=== PATIENT | female | born 1990 | race African-American/Black ===

== ENCOUNTER 2016-09-13 10:00 | Observation (INO) | payer MEDICAID ==
[~2016-09-13] VITALS: Ht 157.5 cm; Wt 81.6 kg
[2016-09-13] MEDS ORDERED: PREN-88 PO (11:20)
== END 2016-09-13 11:50 | disposition home or self-care (01) ==
LOC: L&D 10:00
PROVIDERS: ADMIT Obstetrics & Gynecology; ATTEND Obstetrics & Gynecology
DX: O26.893 Other specified pregnancy related conditions, third trimester (principal); R09.81 Nasal congestion; O98.813 Other maternal infectious and parasitic diseases complicating pregnancy, third trimester; B37.9 Candidiasis, unspecified; Z3A.36 36 weeks gestation of pregnancy
CPT/HCPCS: G0378; J7120

== ENCOUNTER 2016-09-25 07:06 | Inpatient (IN) | payer MEDICAID ==
[~2016-09-25] VITALS: Ht 157.5 cm; Wt 83.5 kg
[~2016-09-25 07:06] MED LIST: PREN-88 PO
[2016-09-25] MEDS ORDERED: LACTATED RINGERS 1,000 ML IV SCH ×2 (08:00→08:47)
[2016-09-25 08:03] LABS: GLUCOSE URINE NEGATIVE (NEGATIVE); KETONES URINE TRACE (NEGATIVE); LEUKOCYTE ESTERASE URINE 3+ (NEGATIVE); NITRITE URINE NEGATIVE (NEGATIVE); OCCULT BLOOD URINE NEGATIVE (NEGATIVE); PH URINE 6.5 (4.5-8.0); PROTEIN URINE NEGATIVE (NEGATIVE); SPECIFIC GRAVITY URINE 1.011 (1.005-1.030); UROBILINOGEN URINE 0.2 E.U./dL (0.2-1.0)
[2016-09-25 08:05] LABS: CLARITY URINE SL HAZY (CLEAR); COLOR URINE YELLOW (YELLOW)
[2016-09-25] MEDS ORDERED: TERBUTALINE SULFATE 1MG/ML VIAL SUBCUT PRN (08:15)
[2016-09-25] MEDS ORDERED: DEXT 5%/LR + PITOCIN 20UNITS/L 1,000 ML IV SCH ×2 (08:47→13:10)
[2016-09-25] MEDS ORDERED: CARBOPROST TROMETHAMINE 250 MCG/ML AMPUL IM PRN (09:00)
[2016-09-25] MEDS ORDERED: METHYLERGONOVINE MALEATE 0.2 MG/ML IM PRN (09:00)
[2016-09-25 09:53] LABS: BASOPHILS % 0.3 % (0.0-2.0); EOSINOPHILS % 0.4 % (0.0-5.0); LYMPHOCYTES % 19.7 % (20.0-50.0); MEAN CORPUSCULAR HEMOGLOBIN 27.6 pg (28.0-32.0); MEAN CORPUSCULAR VOLUME 86.5 fL (81.0-99.0); MEAN PLATELET VOLUME 8.2 fl (7.4-10.4); NEUTROPHILS % 72.6 % (40.0-76.0); PLATELET 269 x1000/uL (130-400); RED BLOOD CELL COUNT 2.89 mill/uL (4.2-5.4); RED CELL DISTRIBUTION WIDTH 15.1 % (11.6-14.6)
[2016-09-25 10:00] LABS: PARTIAL THROMBOPLASTIN TIME 27.3 sec (24.0-34.0)
[2016-09-25 10:35] LABS: HEPATITIS B SURFACE ANTIGEN NEGATIVE; RUBELLA IGG 183.7 IU/mL (4.99-10)
[2016-09-25] MEDS ORDERED: MORPHINE SULFATE/PF 1MG/ML 10ML AMP ONE (11:47)
[2016-09-25] MEDS ORDERED: OXYTOCIN 10 UNITS/ML 1ML ONE ×2 (11:47→13:47)
[2016-09-25] MEDS ORDERED: CEFAZOLIN 2000MG PREMIX 50 ML IV ONE (11:47)
[2016-09-25] MEDS ORDERED: SODIUM CHLORIDE 0.9% 10ML VIAL ONE (11:47)
[2016-09-25] MEDS ORDERED: FENTANYL CITRATE/PF 50MCG/ML 2ML VIAL ONE (11:47)
[2016-09-25] MEDS ORDERED: EPHEDRINE SULFATE 50MG/ML VIAL ONE (11:47)
[2016-09-25] MEDS ORDERED: ONDANSETRON HCL 4MG/2ML VIAL ONE (11:49)
[2016-09-25] MEDS ORDERED: DIPHENHYDRAMINE 50MG/ML VIAL ONE (11:49)
[2016-09-25] MEDS ORDERED: GLYCOPYRROLATE 0.2 MG/ML 2ML VIAL ONE (13:09)
[2016-09-25] MEDS ORDERED: BISACODYL 10MG SUPP PR PRN (13:15)
[2016-09-25] MEDS ORDERED: RHO(D) IMMUNE GLOBULIN 300 MCG/SYR IM PRN (13:15)
[2016-09-25] MEDS ORDERED: IBUPROFEN 400MG TABLET PO PRN (13:15)
[2016-09-25] MEDS ORDERED: HYDROMORPHONE HCL/PF 2MG/ML CPJ IM PRN (13:15)
[2016-09-25] MEDS ORDERED: PHENYLEPHRINE HCL 10 MG/ML 1ML (IV VIAL) IV ONE (13:47)
[2016-09-25] MEDS ORDERED: NALOXONE HCL 0.4 MG/ML 1ML VIAL IV PRN (14:45)
[2016-09-25] MEDS ORDERED: KETOROLAC 30MG/ML VIAL IV PRN (14:45)
[2016-09-25] MEDS ORDERED: DIPHENHYDRAMINE 50MG/ML VIAL IV PRN (14:45)
[2016-09-25 14:52] LABS: *AMPHETAMINES SCREEN URINE NEGATIVE (NEGATIVE); *BARBITURATES SCREEN URINE NEGATIVE (NEGATIVE); *BENZODIAZEPINES SCREEN URINE NEGATIVE (NEGATIVE); *COCAINE SCREEN URINE NEGATIVE (NEGATIVE); CANNABINOID URINE SCREEN NEGATIVE (NEGATIVE); METHADONE URINE SCREEN NEGATIVE (NEGATIVE); OPIATES URINE SCREEN NEGATIVE (NEGATIVE); PHENCYCLIDINE URINE SCREEN NEGATIVE (NEGATIVE)
[2016-09-25 17:20] VITALS: BP 111/54
[2016-09-25] MEDS ORDERED: ONDANSETRON HCL 4MG/2ML VIAL IV PRN (17:45)
[2016-09-25 19:30] VITALS: BP 115/62
[2016-09-26 00:15] VITALS: BP 120/61
[2016-09-26 04:00] VITALS: BP 113/63
[2016-09-26 07:08] LABS: BASOPHILS % 0.3 % (0.0-2.0); EOSINOPHILS % 0.2 % (0.0-5.0); HEMATOCRIT. 24.2 % (36.0-48.0); HEMOGLOBIN. 7.7 g/dL (12.0-16.0); LYMPHOCYTES % 9.6 % (20.0-50.0); MEAN CORPUSCULAR HEMOGLOBIN 27.6 pg (28.0-32.0); MEAN CORPUSCULAR VOLUME 86.3 fL (81.0-99.0); MEAN PLATELET VOLUME 8.5 fl (7.4-10.4); MONOCYTES % 10.2 % (2.0-8.0); NEUTROPHILS % 79.7 % (40.0-76.0); PLATELET 255 x1000/uL (130-400); RED BLOOD CELL COUNT 2.81 mill/uL (4.2-5.4); RED CELL DISTRIBUTION WIDTH 15.2 % (11.6-14.6)
[2016-09-26 08:35] VITALS: BP 104/54
[2016-09-26] MEDS: ACETAMINOPHEN WITH CODEINE 300/30MG TABLET PO PRN ×2 (15:46→23:26)
[2016-09-26] MEDS: IBUPROFEN 800MG TABLET PO PRN ×2 (15:46→23:25)
[2016-09-26 15:59] VITALS: BP 105/74
[2016-09-26 20:00] VITALS: BP 113/69
[2016-09-26 23:45] VITALS: BP 116/72
[2016-09-27 07:31] VITALS: BP 116/70
[2016-09-27] MEDS: IBUPROFEN 800MG TABLET PO PRN (08:18)
[2016-09-27] MEDS: ACETAMINOPHEN WITH CODEINE 300/30MG TABLET PO PRN ×2 (10:04→14:17)
== END 2016-09-27 15:20 | disposition home or self-care (01) | DRG 540 ==
LOC: L&D 07:06 → OBSVTOIN 07:06 → 7EST PP/OB 16:40
PROVIDERS: ADMIT Obstetrics & Gynecology; ATTEND Obstetrics & Gynecology
PROC: 10D00Z1 Extraction of Products of Conception, Low, Open Approach (ICD-10-PCS; principal; 2016-09-25 14:20)
DX: O34.219 Maternal care for unspecified type scar from previous cesarean delivery (principal); D64.9 Anemia, unspecified; O99.02 Anemia complicating childbirth; Z37.0 Single live birth; Z3A.38 38 weeks gestation of pregnancy; Z82.49 Family history of ischemic heart disease and other diseases of the circulatory system
CPT/HCPCS: 36415; 80305; 81001; 85025; 85610; 85730; 86592; 86703; 86762; 86850; 86900; 86920; 87340; 88307; A4216; G0378; J0171; J0690; J1200; J1885; J2274; J2370; J2405; J2590; J3010; J3105; J3490; J7120; A4315